=== PATIENT | male | born 1975 | race Asian ===

== ENCOUNTER 2017-06-12 10:35 | Emergency (ER) | payer SELFPAY ==
[2017-06-12] MEDS ORDERED: FAMOTIDINE INJ/PF 20 MG/2 ML SDV IV ONE (10:52)
[2017-06-12] MEDS ORDERED: DIPHENHYDRAMINE HCL 50 MG/ML VIAL IV ONE (10:52)
[2017-06-12] MEDS ORDERED: METHYLPREDNISOLONE INJ 125 MG/2 ML SDV IV ONE (10:52)
[2017-06-12] MEDS ORDERED: EPINEPHRINE INJ/PF 1 MG/1 ML AMPULE ONE (10:53)
[2017-06-12] MEDS ORDERED: EPINEPHRINE INJ/PF 1 MG/1 ML AMPULE IM ONE (10:53)
[2017-06-12] MEDS ORDERED: DIPHENHYDRAMINE HCL 50 MG/ML VIAL ONE (10:53)
[2017-06-12] MEDS ORDERED: METHYLPREDNISOLONE INJ 125 MG/2 ML SDV ONE (10:53)
--- NOTE | 2017-06-12 10:59 | ER Document Report ---
ED Medical Screen (RME) - General TRAVEL OUTSIDE OF THE [place] IN LAST 30 DAYS: No - General Chief Complaint: Allergic Reaction Stated Complaint: POSSIBLE INSECT BITE Time Seen by Provider: 06/12/17 10:48 Notes: Patient is a 41 year old male who was bit by an insect this morning around 9: 30. Patient and daughter think it may have been an ant bite. Patient does not speak Bulgarian but his daughter is able to translate. Patient complains of itchiness, hives, and throat tightening. Patient got bit on his foot. Patient denies any swelling or difficulty breathing. Patient has never had this type of reaction before to insect bites or food. Patient is a smoker. (ZENAIDA GEORGE) - Related Data Allergies/Adverse Reactions: No Known Allergies Allergy (Unverified 06/12/17 10:45) Past Medical History Renal/ Medical History: Denies: Hx Peritoneal Dialysis Physical Exam - Vital signs Vitals: Temp Pulse Resp BP Pulse Ox 97.9 F 67 18 110/69 96 06/12/17 10:44 06/12/17 10:44 06/12/17 10:44 06/12/17 10:44 06/12/17 10:44 - Notes Notes: GENERAL: Alert. Appears slightly uncomfortable. ENT: No swelling in the posterior oropharynx. No evidence for respiratory distress or blocked airway. RESPIRATORY: Clear to auscultation bilaterally. No wheezes, rhonchi, or rales. No respiratory distress HEART: Regular rate and rhythm. No murmurs, gallops, or rubs. SKIN: Diffuse urticarial lesions to the extremities and truncal regions. (ZENAIDA GEORGE) Course - Re-evaluation Re-evalutation: 06/12/17 11:01 Ordered Pepcid, Benadryl, Solu-Medrol as well as epinephrine given the sensation of throat swelling. Patient will have an IV started and be placed on a monitor and sent directly to the main emergency department. (DEVON THORNTON) - Vital Signs Vital signs: Temp Pulse Resp BP Pulse Ox 97.9 F 67 18 110/69 96 06/12/17 10:44 06/12/17 10:44 06/12/17 10:44 06/12/17 10:44 06/12/17 10:44 Scribe Documentation - Scribe Written by Scribe:: Mitchell Vann 06/12/17 11:00 acting as scribe for :: Candace
--- NOTE | 2017-06-12 11:09 | ER Document Report ---
ED General - General Chief Complaint: Allergic Reaction Stated Complaint: POSSIBLE INSECT BITE Time Seen by Provider: 06/12/17 10:48 Mode of Arrival: Ambulatory Information source: Patient, Relative Notes: 41-year-old male presents with allergic reaction after ant bite to his left leg. Patient denies any difficulty breathing denies his throat closing denies any tongue swelling Patient notes it is just rash all throughout his body TRAVEL OUTSIDE OF THE [place] IN LAST 30 DAYS: No - HPI Onset: Just prior to arrival Onset/Duration: Sudden Quality of pain: No pain Severity: Moderate Pain Level: Denies Associated symptoms: Other Exacerbated by: Other - bug bite Relieved by: Denies Similar symptoms previously: No Recently seen / treated by doctor: No - Related Data Allergies/Adverse Reactions: No Known Allergies Allergy (Unverified 06/12/17 10:45) Past Medical History - Social History Smoking Status: Current Every Day Smoker Cigarette use (# per day): Yes Chew tobacco use (# tins/day): No Smoking Education Provided: No Frequency of alcohol use: Occasional Drug Abuse: None Family History: Reviewed & Not Pertinent Renal/ Medical History: Denies: Hx Peritoneal Dialysis Surgical Hx: Negative - Immunizations Hx Diphtheria, Pertussis, Tetanus Vaccination: No Review of Systems - Review of Systems Notes: REVIEW OF SYSTEMS: CONSTITUTIONAL : Denies fever, chills, or sweats. Denies recent illness. EENT: Denies eye, ear, throat, or mouth pain or symptoms. Denies nasal or sinus congestion or discharge. Denies throat, tongue, or mouth swelling or difficulty swallowing. CARDIOVASCULAR: Denies chest pain. Denies palpitations or racing or irregular heart beat. Denies ankle edema. RESPIRATORY: Denies cough, cold, or chest congestion. Denies shortness of breath, difficulty breathing, or wheezing. GASTROINTESTINAL: Denies abdominal pain or distention. Denies nausea, vomiting , or diarrhea. Denies blood in vomitus, stools, or per rectum. Denies black, tarry stools. Denies constipation. GENITOURINARY: Denies difficulty urinating, painful urination, burning, frequency, blood in urine, or discharge. MUSCULOSKELETAL: Denies back or neck pain or stiffness. Denies joint pain or swelling. SKIN: Admits to rash all throughout the body HEMATOLOGIC : Denies easy bruising or bleeding. LYMPHATIC: Denies swollen, enlarged glands. NEUROLOGICAL: Denies confusion or altered mental status. Denies passing out or loss of consciousness. Denies dizziness or lightheadedness. Denies headache. Denies weakness or paralysis or loss of use of either side. Denies problems with gait or speech. Denies sensory loss, numbness, or tingling. Denies seizures. PSYCHIATRIC: Denies anxiety or stress. Denies depression, suicidal ideation, or homicidal ideation. ALL OTHER SYSTEMS REVIEWED AND NEGATIVE. Dictation was performed using [employer] voice recognition software PHYSICAL EXAMINATION: GENERAL: Well-appearing, well-nourished and in no acute distress. HEAD: Atraumatic, normocephalic. EYES: Pupils equal round and reactive to light, extraocular movements intact, sclera anicteric, conjunctiva are normal. ENT: Nares patent, oropharynx clear without exudates. Moist mucous membranes. There is no airway involvement NECK: Normal range of motion, supple without lymphadenopathy LUNGS: Breath sounds clear to auscultation bilaterally and equal. No wheezes rales or rhonchi. HEART: Regular rate and rhythm without murmurs ABDOMEN: Soft, nontender, nondistended abdomen. No guarding, no rebound. No masses appreciated. Musculoskeletal: Normal range of motion, no pitting or edema. No cyanosis. NEUROLOGICAL: Cranial nerves grossly intact. Normal speech, normal gait. Normal sensory, motor exams PSYCH: Normal mood, normal affect. SKIN: Generalized urticarial rash all throughout the body Physical Exam - Vital signs Vitals: Temp Pulse Resp BP Pulse Ox 97.9 F 67 18 110/69 96 06/12/17 10:44 06/12/17 10:44 06/12/17 10:44 06/12/17 10:44 06/12/17 10:44 Course - Re-evaluation Re-evalutation: 06/12/17 11:09 Epinephrine will be held at this time, patient was given Benadryl Pepcid Solu- Medrol will be watched there is no airway involvement noted 06/12/17 11:39 pt feels much better, will ocntinue ot watch but otherwise stable for dc home After performing a Medical Screening Examination, I estimate there is LOW risk for AIRWAY COMPROMISE, ANAPHYLAXIS, CELLULITIS, EPIGLOTTIS, or NECROTIZING FASCIITIS, thus I consider the discharge disposition reasonable. Also, there is no evidence or peritonitis, sepsis, or toxicity. I have reevaluated this patient multiple times and no significant life threatening changes are noted. The patient and I have discussed the diagnosis and risks, and we agree with discharging home with close follow-up with the understanding that symptoms and presentations can change. We also discussed returning to the Emergency Department immediately if new or worsening symptoms occur. We have discussed the symptoms which are most concerning (e.g., difficulty breathing or swallowing , fever, changing or worsening pain) that necessitate immediate return. - Vital Signs Vital signs: Temp Pulse Resp BP Pulse Ox 97.9 F 67 18 110/69 96 06/12/17 10:44 06/12/17 10:44 06/12/17 10:44 06/12/17 10:44 06/12/17 10:44 Discharge - Discharge Clinical Impression: Allergic reaction to insect sting Qualifiers: Encounter type: sequela Injury intent: accidental or unintentional Qualified Code(s): T63.481S - Toxic effect of venom of other arthropod, accidental ( unintentional), sequela Condition: Stable Disposition: HOME, SELF-CARE Instructions: Acute Allergic Reaction ([facility]) Additional Instructions: Return immediately if there is any tongue swelling or difficulty breathing or any other concerns Prescriptions: Diphenhydramine HCl [Benadryl 50 mg Capsule] 1 cap PO Q6 PRN #20 capsule PRN Reason: Epinephrine [Epipen 2-Oscar] 0.3 mg IM ASDIR PRN #1 auto.injct PRN Reason: Famotidine [Pepcid 20 mg Tablet] 20 mg PO DAILY #5 tablet Prednisone 60 mg PO DAILY 5 Days tablet Referrals: GIGI CHARLES MD [NO LOCAL MD] - Follow up as needed
[2017-06-12 11:57] VITALS: BP 125/82
== END 2017-06-12 11:58 | disposition home or self-care (01) ==
LOC: ER 10:35
DX: T63.421A Toxic effect of venom of ants, accidental (unintentional), initial encounter (principal); R21 Rash and other nonspecific skin eruption; F17.210 Nicotine dependence, cigarettes, uncomplicated
CPT/HCPCS: 99281; J1200; J2930; S0028

== ENCOUNTER 2019-10-15 16:00 | Emergency (ER) | payer BC ==
[2019-10-15] MEDS ORDERED: FAMOTIDINE INJ/PF 20 MG/2 ML SDV IV ONE ×2 (16:24→19:00)
[2019-10-15] MEDS ORDERED: DIPHENHYDRAMINE HCL 50 MG/ML VIAL IV ONE (16:24)
[2019-10-15] MEDS ORDERED: EPINEPHRINE INJ/PF 1 MG/1 ML AMPULE IM ONE (16:24)
[2019-10-15] MEDS ORDERED: METHYLPREDNISOLONE INJ 125 MG/2 ML SDV IV ONE ×2 (16:24→19:00)
--- NOTE | 2019-10-15 16:27 | ER Document Report ---
ED Medical Screen (RME) - General Chief Complaint: Allergic Reaction Stated Complaint: INSECT BITE Time Seen by Provider: 10/15/19 16:22 Mode of Arrival: Ambulatory Information source: Patient Notes: 43-year-old male patient presenting to the emergency department with an acute allergic reaction. Patient reports he was bit by multiple ants. 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 He has not used his EpiPen. He is covered in hives. The hives are also on his neck and face. He is not having any difficulty swallowing, he is speaking in full complete sentences. I have greeted and performed a rapid initial assessment of this patient. A comprehensive ED assessment and evaluation of the patient, analysis of test results and completion of the medical decision making process will be conducted by additional ED providers. I have specifically instructed the patient or family members with the patient to immediately return to any nursing staff should anything change in the patient's condition or with their chief complaint. TRAVEL OUTSIDE OF THE [place] IN LAST 30 DAYS: No - Related Data Allergies/Adverse Reactions: ants Allergy (Uncoded 10/15/19 16:21) Past Medical History - Social History Frequency of alcohol use: None Drug Abuse: None Renal/ Medical History: Denies: Hx Peritoneal Dialysis - Immunizations Hx Diphtheria, Pertussis, Tetanus Vaccination: No Physical Exam - Vital signs Vitals: Temp Pulse Resp BP Pulse Ox 97.4 F 82 20 109/57 L 95 10/15/19 16:10/15/19 16:10/15/19 16:10/15/19 16:10/15/19 16:09 Course - Vital Signs Vital signs: Temp Pulse Resp BP Pulse Ox 97.4 F 82 20 109/57 L 95 10/15/19 16:10/15/19 16:10/15/19 16:10/15/19 16:10/15/19 16:09
--- NOTE | 2019-10-15 19:20 | ER Document Report ---
ED Allergic Reaction - General Chief Complaint: Allergic Reaction Stated Complaint: INSECT BITE Time Seen by Provider: 10/15/19 16:22 Mode of Arrival: Ambulatory Information source: Patient TRAVEL OUTSIDE OF THE [place] IN LAST 30 DAYS: No - HPI Notes: Patient states that he was bitten by ants and that he has had an anaphylactic reaction to ants previously. He states they were red ants. He states that they bit him on both arms. On arrival he denies any trouble breathing or swallowing. - Related Data Allergies/Adverse Reactions: ants Allergy (Uncoded 10/15/19 16:21) Past Medical History - General Information source: Patient - Social History Smoking Status: Never Smoker Frequency of alcohol use: None Drug Abuse: None Family History: Reviewed & Not Pertinent Patient has suicidal ideation: No Patient has homicidal ideation: No Renal/ Medical History: Denies: Hx Peritoneal Dialysis - Immunizations Hx Diphtheria, Pertussis, Tetanus Vaccination: No Review of Systems - Review of Systems Constitutional: denies: Chills, Fever Cardiovascular: denies: Chest pain, Palpitations Respiratory: denies: Cough, Short of breath -: Yes All other systems reviewed and negative Physical Exam - Vital signs Vitals: Temp Pulse Resp BP Pulse Ox 97.4 F 82 20 109/57 L 95 10/15/19 16:09 10/15/19 16:09 10/15/19 16:09 10/15/19 16:09 10/15/19 16:09 Interpretation: Normal - General General appearance: Appears well, Alert - HEENT Head: Normocephalic, Atraumatic Eyes: Normal Pupils: PERRL - Respiratory Respiratory status: No respiratory distress Chest status: Nontender Breath sounds: Normal Chest palpation: Normal - Cardiovascular Rhythm: Regular Heart sounds: Normal auscultation Murmur: No - Abdominal Inspection: Normal Distension: No distension Bowel sounds: Normal Tenderness: Nontender Organomegaly: No organomegaly - Back Back: Normal, Nontender - Extremities General upper extremity: Normal inspection, Nontender, Normal color, Normal ROM, Normal temperature General lower extremity: Normal inspection, Nontender, Normal color, Normal ROM, Normal temperature, Normal weight bearing. No: Segundo's sign - Neurological Neuro grossly intact: Yes Cognition: Normal Orientation: AAOx4 Fernando Coma Scale Eye Opening: Spontaneous Fernando Coma Scale Verbal: Oriented Fernando Coma Scale Motor: Obeys Commands [place] Coma Scale Total: 15 Speech: Normal Motor strength normal: LUE, RUE, LLE, RLE Sensory: Normal - Psychological Associated symptoms: Normal affect, Normal mood - Skin Skin Temperature: Warm Skin Moisture: Dry Skin Color: Other - Patient has some scattered urticaria that are resolving by the time I examined him Course - Re-evaluation Re-evalutation: 10/15/19 19:27 Patient arrived here with complaints of a reaction to ant bites. He stated he had had previous anaphylactic reactions. He was treated with epi antihistamines and steroids. He reacted well to this. He has never had any unstable vital signs. He has never had any type of shortness of breath or trouble swallowing. No swelling of intraoral structures. - Vital Signs Vital signs: Temp Pulse Resp BP Pulse Ox 97.4 F 82 20 109/57 L 100 10/15/19 16:09 10/15/19 16:09 10/15/19 16:09 10/15/19 16:10/15/19 19:00 Discharge - Discharge Clinical Impression: Allergic to insect bites and stings, Urticaria Condition: Stable Disposition: HOME, SELF-CARE Instructions: Acute Allergic Reaction ([facility]) Prescriptions: Diphenhydramine HCl [Benadryl 25 mg Capsule] 25 mg PO Q6 PRN 3 Days #10 capsule PRN Reason: Prednisone [Deltasone 20 mg Tablet] 3 tab PO DAILY 5 Days tablet Forms: Return to Work Referrals: [facility] [Provider Group] - Follow up in 3-5 days
[2019-10-15 19:51] VITALS: BP 105/60
== END 2019-10-15 19:50 | disposition home or self-care (01) ==
LOC: ER 16:00
DX: T63.481A Toxic effect of venom of other arthropod, accidental (unintentional), initial encounter (principal); L50.0 Allergic urticaria; X58.XXXA Exposure to other specified factors, initial encounter; Z91.038 Other insect allergy status
CPT/HCPCS: 99283; 96374; 96375; J1200; J0171; J2930; S0028